=== PATIENT | female | born 1955 | race Caucasian/White ===

== ENCOUNTER 2024-03-09 17:01 | Inpatient (IN) ==
[2024-03-09 17:49] LABS: ABS Eosinophils 0.1 10^3/uL (0.0-0.5); ABS Lymphocytes 1.2 10^3/uL (1.0-4.8); ABS Monocytes 0.4 10^3/uL (0.0-0.9); ABS Neutrophils 9.9 10^3/uL (1.5-7.6); Eosinophil % 0.4 %; Hematocrit 39.7 % (35-45); Hemoglobin 13.2 g/dL (11.5-14.3); Lymphocyte % 10.5 %; Mean Corpuscular Hemoglobin 29.2 pg (27-33); Mean Corpuscular Hgb Conc 33.3 g/dL (31-36); Mean Corpuscular Volume 87.6 fL (80-97); Mean Platelet Volume 8.7 fL (7.5-11.2); Platelet Count 283 10^3/uL (150-450); Red Blood Count 4.53 10^6/uL (3.63-4.92); Red Cell Distribution Width 13.5 % (12-17); White Blood Count 11.6 10^3/uL (3.8-11.8)
[2024-03-09] MEDS: Iodixanol 320 (CONTRAST) 100 ML SDV IV ONE (17:51)
[2024-03-09] MEDS: Prochlorperazine 5 mg/ml 2 ml VIAL (10 mg) IV ONE (18:00)
[2024-03-09 18:03] LABS: Activated Partial Thrombo Time 31.9 seconds (26.0-38.0); INR 0.99 (0.85-1.14)
[2024-03-09 18:30] LABS: Albumin/Globulin Ratio 1.6 (1-3); Calcium 9.5 mg/dL (8.6-10.3); Creatinine, Serum 0.68 mg/dL (0.51-0.95); Direct Bilirubin 0.1 mg/dL (0.03-0.18); Globulin 3.1 g/dL (2-4); HDL Cholesterol 56.4 mg/dL; Indirect Bilirubin 0.6 mg/dL (0.3-1.0); Total Bilirubin 0.7 mg/dL (0.2-1.0); Total Protein 8.1 g/dL (6.4-8.9); eGFR CKD-EPI 93.1 (>60)
[2024-03-09 19:23] LABS: High Sensitivity Troponin 1 Hr 20 pg/mL (<15)
[2024-03-09] MEDS: Acetaminophen IV 1 GM/100ML 1,000 MG/100 ML BAG IV ONE ×2 (19:33→20:47)
[2024-03-09] MEDS: Lactated Ringers 1000 ml BAG IV.FLUID IV ONE (19:34)
[2024-03-09] MEDS ORDERED: LORazepam 2 mg VIAL 1 ml ONE (19:45)
[2024-03-09] MEDS ORDERED: cefTRIAXone 2 GM ADDV.VIAL 2 GM in NS 0.9% 100 ml BAG 100 ML IV ONE (19:56)
[2024-03-09] MEDS ORDERED: Ampicillin IV 1 GM in NS 0.9% 50 ML 50 ML IVPB ONE (19:57)
[2024-03-09] MEDS ORDERED: Etomidate 20 mg/10 ml 2 MG/ML 10 ml VIAL ONE ×2 (19:57→21:17)
[2024-03-09] MEDS ORDERED: Lorazepam PYXIS KEY PRN (20:02)
[2024-03-09] MEDS: LORazepam 2 mg VIAL 1 ml IV PUSH ONE (20:10)
[2024-03-09 20:19] LABS: Urine Appearance Clear; Urine Bacteria 1+ /HPF (Absent); Urine Bilirubin Negative (Negative); Urine Blood Trace (Negative); Urine Color Light-Yellow; Urine Glucose Negative (Negative); Urine Ketones 1+ (Negative); Urine Nitrite Negative (Negative); Urine Protein 1+ (>=30 mg/dL) (Negative); Urine Red Blood Cell 3+(>10/hpf) /HPF (0-Trace); Urine Squamous Epithelial Cell Present /HPF (Absent); Urine Urobilinogen Negative (Negative); Urine White Blood Cell Trace(0-5/hpf) /HPF (0-Trace); Urine pH 8.5 (5.0-8.0)
[2024-03-09 20:22] LABS: Alcohol, S < 13 mg/dL (<13)
[2024-03-09] MEDS ORDERED: Succinylcholine 200 mg VIAL 20 mg/ml 10 ml VIAL (200 mg) ONE (20:23)
[2024-03-09 20:36] LABS: Urine Benzodiazepine Screen None Detected (None Detect); Urine Cannabinoids Screen None Detected (None Detect); Urine Opiates Screen None Detected (None Detect)
[2024-03-09 20:36] LABS: Body Fluid Source Cerebral Spinal
[2024-03-09 20:43] LABS: TSH Ultra Thyroid Stim Horm 0.63 mcIU/mL (0.34-5.60)
[2024-03-09] MEDS: Etomidate 20 mg/10 ml 2 MG/ML 10 ml VIAL IV ONE (20:46)
[2024-03-09 20:49] LABS: CSF Glucose 62 mg/dL (40-70)
[2024-03-09 21:04] LABS: Body Fluid Appearance Clear; Body Fluid Color Colorless; CSF Tube # 3
[2024-03-09 21:12] LABS: CSF Body Fluid WBC 98 /mcL
[2024-03-09 21:14] LABS: High Sensitivity Troponin 3 Hr 41 pg/mL (<15)
[2024-03-09] MEDS ORDERED: Propofol 10 MG/ML 20 ML BTL ONE (21:36)
[2024-03-09] MEDS ORDERED: Propofol 10 mg/ml 100 ML BTL 1,000 MG/100 ML BTL IV SCH ×3 (21:55→22:00)
[2024-03-09] MEDS: Vancomycin 1,250 MG in NS 0.9% 250 ml 250 ML IVPB ONE (21:58)
[2024-03-09 22:43] LABS: Body Fluid Mono 6 %; Body Fluid Total Cells Counted 100
[2024-03-09] MEDS: Acyclovir IV 500 MG in NS 0.9% 100 ml BAG 100 ML IVPB ONE (22:45)
[2024-03-09] MEDS: Midazolam PREMIXBAG 1 MG/ML NS 100 ML IV SCH (22:51)
[2024-03-09] MEDS: Midazolam 2 mg/2 ml VIAL 1 mg/ml 2 ml VIAL (2 mg) IV SLOW PU ONE (23:05)
[2024-03-09] MEDS: Pantoprazole VIAL 40 MG VIAL IV SCH (23:20)
[2024-03-09] MEDS: Chlorhexidine MOUTHWASH 0.12% 15 ML UDC SWISH SPIT SCH (23:20)
[2024-03-09] MEDS ORDERED: Vancomycin per Pharmacy 1 EA NOTE FOLLOW UP SCH (23:45)
[2024-03-10 00:28] LABS: RBC Parasite Smear No Parasites Seen (No Parasite)
[2024-03-10] MEDS: cefTRIAXone 2 gm/50 mL D5W 2 GM/50 ML BAG IV SCH (01:18)
[2024-03-10] MEDS: Ampicillin ADVAN 2 GM in NS 0.9% 100 ml BAG 100 ML IVPB SCH (02:01)
[2024-03-10] MEDS: Enoxaparin 40 MG/0.4 ML SYR SUBCUT SCH (03:46)
[2024-03-10 05:07] LABS: ABS Basophils 0.1 10^3/uL (0.0-0.1); ABS Lymphocytes 2.9 10^3/uL (1.0-4.8); ABS Monocytes 1.3 10^3/uL (0.0-0.9); ABS Neutrophils 8.9 10^3/uL (1.5-7.6); ABS Nucleated RBC 0.03 10^3/ul; Eosinophil % 0.2 %; Hematocrit 37.4 % (35-45); Hemoglobin 12.5 g/dL (11.5-14.3); Mean Corpuscular Hemoglobin 29.8 pg (27-33); Mean Corpuscular Hgb Conc 33.3 g/dL (31-36); Mean Corpuscular Volume 89.4 fL (80-97); Mean Platelet Volume 9.1 fL (7.5-11.2); Nucleated Red Blood Cells % 0.2 %/100WBC (0.0-0.8); Platelet Count 140 10^3/uL (150-450); Red Blood Count 4.18 10^6/uL (3.63-4.92); Red Cell Distribution Width 13.6 % (12-17); White Blood Count 13.2 10^3/uL (3.8-11.8)
[2024-03-10] MEDS: Acetaminophen IV 1 GM/100ML 1,000 MG/100 ML BAG IV PRN (05:52)
[2024-03-10 06:04] LABS: Anion Gap 11 mmol/L (2-16); Blood Urea Nitrogen 7 mg/dL (6-24); CO2 Carbon Dioxide 17 mmol/L (22-32); Calcium 6.8 mg/dL (8.6-10.3); Chloride 109 mmol/L (101-111); Creatinine, Serum 0.45 mg/dL (0.51-0.95); Glucose 87 mg/dL (70-100); Sodium 137 mmol/L (135-145); eGFR CKD-EPI 102.8 (>60)
[2024-03-10] MEDS: Vancomycin 750 MG in NS 0.9% 250 ML IVPB SCH (06:18)
[2024-03-10] MEDS: Acyclovir IV 520 MG in NS 0.9% 100 ml BAG 100 ML IVPB SCH (06:18)
[2024-03-10] MEDS ORDERED: Vancomycin 1,000 MG in NS 0.9% 250 ml 250 ML IVPB ONE (07:00)
[2024-03-10] MEDS: Iohexol 350 (CONTRAST) 500 ML MDV IV ONE (07:10)
[2024-03-10 07:49] LABS: Magnesium 1.5 mg/dL (1.9-2.7); Potassium Redraw 3.7 mmol/L (3.5-5.0)
[2024-03-10] MEDS: Magnesium Sulfate 2 gm BAG 2 GM/50 ML BAG IVPB ONE (08:25)
[2024-03-10] MEDS: KCL 20 MEQ/100 ML IVPREMIX 20 MEQ/100 ML BAG IV ONE (10:32)
[2024-03-10] MEDS: Propofol 10 mg/ml 100 ML BTL 1,000 MG/100 ML BTL IV SCH ×2 (10:44→20:29)
[2024-03-10 14:33] LABS: C Reactive Protein 5.87 mg/L (<8.01)
[2024-03-10 17:17] LABS: High Sensitivity Troponin 1 Hr 10 pg/mL (<15)
[2024-03-10] MEDS: fentaNYL 100 mcg/2 ml 50 MCG/ML VIAL IV SLOW PU PRN (19:40)
[2024-03-10] MEDS: Lidocaine 1% VIAL 10 MG/ML 30 ML VIAL ONE (23:53)
[2024-03-11 05:18] LABS: ABS Basophils 0.1 10^3/uL (0.0-0.1); ABS Neutrophils 9.8 10^3/uL (1.5-7.6); ABS Nucleated RBC 0.01 10^3/ul; Eosinophil % 0.2 %; Hematocrit 33.3 % (35-45); Hemoglobin 11.4 g/dL (11.5-14.3); Lymphocyte % 15.5 %; Mean Corpuscular Hemoglobin 29.6 pg (27-33); Mean Corpuscular Hgb Conc 34.3 g/dL (31-36); Mean Corpuscular Volume 86.3 fL (80-97); Mean Platelet Volume 8.6 fL (7.5-11.2); Nucleated Red Blood Cells % 0.1 %/100WBC (0.0-0.8); Platelet Count 204 10^3/uL (150-450); Red Blood Count 3.86 10^6/uL (3.63-4.92); Red Cell Distribution Width 13.6 % (12-17)
[2024-03-11 05:55] LABS: Calcium 7.5 mg/dL (8.6-10.3); Creatinine, Serum 0.64 mg/dL (0.51-0.95); Magnesium 1.9 mg/dL (1.9-2.7); Potassium 3.1 mmol/L (3.5-5.0); Vancomycin Trough 11.3 mcg/mL; eGFR CKD-EPI 94.4 (>60)
[2024-03-11] MEDS: Vancomycin Trough Check NOTE FOLLOW UP ONE (06:11)
[2024-03-11] MEDS: KCL 20 MEQ/100 ML IVPREMIX 20 MEQ/100 ML BAG IV ONE (08:06)
[2024-03-11] MEDS: Dexamethasone IV 4 MG/ML VIAL 1 ml VIAL IV SLOW PU SCH (11:09)
[2024-03-11] MEDS: Lidocaine 2% PF 5 ML VIAL INJ ONE (11:35)
[2024-03-11] MEDS: Midazolam 5 mg/5 ml VIAL 1 mg/ml 5 ml VIAL (5 mg) IV SLOW PU ONE ×2 (11:45→14:22)
[2024-03-11] MEDS: DOXYcycline 100 MG in NS 0.9% 250 ml 250 ML IVPB SCH (11:52)
[2024-03-11] MEDS: Lidocaine 2% PF 5 ML VIAL ONE (12:10)
[2024-03-11 12:14] LABS: Body Fluid Source Cerebral Spinal
[2024-03-11 12:29] LABS: Body Fluid Appearance Clear; Body Fluid Color Colorless; CSF Tube # 2
[2024-03-11 12:30] LABS: CSF Body Fluid WBC 16 /mcL
[2024-03-11] MEDS: Midazolam 5 mg/5 ml VIAL 1 mg/ml 5 ml VIAL (5 mg) ONE ×2 (13:06→17:06)
[2024-03-11 13:41] LABS: Body Fluid Mono 18 %; Body Fluid Total Cells Counted 200
[2024-03-11] MEDS: Gadoteridol (CONTRAST) 279.3 MG/ML 10 ML IV ONE (16:15)
[2024-03-11] MEDS ORDERED: Sulfur Hexaflouride MICROSPHR 25 MG VIAL IV PRN (16:56)
[2024-03-11] MEDS: Acyclovir IV 520 MG in NS 0.9% 100 ml BAG 100 ML IVPB SCH (17:28)
[2024-03-11] MEDS: Lactated Ringers 1000 ml BAG 1,000 ML IV ONE (20:02)
[2024-03-11 20:49] LABS: HSV 1 PCR, CSF Negative (Negative); HSV 2 PCR, CSF Negative (Negative)
[2024-03-12] MEDS: Midazolam 5 mg/5 ml VIAL 1 mg/ml 5 ml VIAL (5 mg) IV SLOW PU ONE (02:28)
[2024-03-12] MEDS: Midazolam 5 mg/5 ml VIAL 1 mg/ml 5 ml VIAL (5 mg) ONE (04:55)
[2024-03-12 05:20] LABS: ABS Lymphocytes 1.1 10^3/uL (1.0-4.8); ABS Monocytes 0.5 10^3/uL (0.0-0.9); ABS Neutrophils 7.3 10^3/uL (1.5-7.6); ABS Nucleated RBC 0.01 10^3/ul; Hematocrit 31.9 % (35-45); Lymphocyte % 12.4 %; Mean Corpuscular Hemoglobin 29.9 pg (27-33); Mean Corpuscular Hgb Conc 34.5 g/dL (31-36); Mean Corpuscular Volume 86.5 fL (80-97); Mean Platelet Volume 8.7 fL (7.5-11.2); Nucleated Red Blood Cells % 0.1 %/100WBC (0.0-0.8); Platelet Count 190 10^3/uL (150-450); Red Blood Count 3.69 10^6/uL (3.63-4.92); Red Cell Distribution Width 13.6 % (12-17); White Blood Count 8.9 10^3/uL (3.8-11.8)
[2024-03-12 05:59] LABS: Calcium 7.9 mg/dL (8.6-10.3); Creatinine, Serum 0.5 mg/dL (0.51-0.95); Magnesium 1.9 mg/dL (1.9-2.7); eGFR CKD-EPI 100.2 (>60)
[2024-03-12] MEDS: Dexamethasone IV 4 MG/ML VIAL 1 ml VIAL IV SLOW PU SCH (07:33)
[2024-03-12] MEDS: Magnesium Sulfate 2 gm BAG 2 GM/50 ML BAG IVPB ONE (08:55)
[2024-03-12] MEDS ORDERED: Morphine 4 MG/ML VIAL (1 ml) IV PRN (09:19)
[2024-03-12] MEDS ORDERED: Lorazepam PYXIS KEY PRN (09:22)
[2024-03-12] MEDS ORDERED: Morphine 2 MG/ML SYRINGE IV PRN (09:23)
[2024-03-12] MEDS: KCL 20 MEQ/100 ML IVPREMIX 20 MEQ/100 ML BAG IV SCH (09:29)
[2024-03-12] MEDS: LORazepam 2 mg VIAL 1 ml IV PUSH PRN (09:29)
[2024-03-12] MEDS: MESALAMINE 1.2 GM PO SCH (16:39)
[2024-03-13 01:54] LABS: Anaplasma phagocytophilum Negative (Negative); B. miyamotoi PCR, B Negative (Negative); Babesia divergens/MO-1 Negative (Negative); Babesia ducani Negative (Negative); Ehrlichia chaffeensis Negative (Negative); Ehrlichia ewingii/canis Negative (Negative); Ehrlichia muris eauclairensis Negative (Negative)
[2024-03-13 05:04] LABS: ABS Lymphocytes 1.7 10^3/uL (1.0-4.8); ABS Monocytes 0.7 10^3/uL (0.0-0.9); ABS Neutrophils 10.7 10^3/uL (1.5-7.6); ABS Nucleated RBC 0.01 10^3/ul; Eosinophil % 0.1 %; Hematocrit 30.8 % (35-45); Hemoglobin 10.4 g/dL (11.5-14.3); Lymphocyte % 12.6 %; Mean Corpuscular Hemoglobin 29.3 pg (27-33); Mean Corpuscular Hgb Conc 33.7 g/dL (31-36); Mean Corpuscular Volume 87.1 fL (80-97); Mean Platelet Volume 8.7 fL (7.5-11.2); Nucleated Red Blood Cells % 0.1 %/100WBC (0.0-0.8); Platelet Count 238 10^3/uL (150-450); Red Blood Count 3.54 10^6/uL (3.63-4.92); Red Cell Distribution Width 13.7 % (12-17); White Blood Count 13.2 10^3/uL (3.8-11.8)
[2024-03-13 05:44] LABS: Calcium 8.2 mg/dL (8.6-10.3); Creatinine, Serum 0.55 mg/dL (0.51-0.95); Magnesium 2.1 mg/dL (1.9-2.7); Potassium 3.8 mmol/L (3.5-5.0); eGFR CKD-EPI 97.9 (>60)
[2024-03-13] MEDS: Potassium Chlor 20 meq TAB.ER PO ONE (08:51)
[2024-03-13] MEDS: Iohexol 350 (CONTRAST) 500 ML MDV IV ONE (11:34)
[2024-03-14 05:49] LABS: ABS Basophils 0.1 10^3/uL (0.0-0.1); ABS Lymphocytes 2.3 10^3/uL (1.0-4.8); ABS Monocytes 0.7 10^3/uL (0.0-0.9); ABS Neutrophils 8.4 10^3/uL (1.5-7.6); Eosinophil % 0.2 %; Hemoglobin 11.1 g/dL (11.5-14.3); Lymphocyte % 19.9 %; Mean Corpuscular Hemoglobin 29.2 pg (27-33); Mean Corpuscular Hgb Conc 33.5 g/dL (31-36); Mean Corpuscular Volume 87.1 fL (80-97); Mean Platelet Volume 8.9 fL (7.5-11.2); Platelet Count 265 10^3/uL (150-450); Red Blood Count 3.79 10^6/uL (3.63-4.92); Red Cell Distribution Width 13.9 % (12-17); White Blood Count 11.6 10^3/uL (3.8-11.8)
[2024-03-14 06:14] LABS: Calcium 8.7 mg/dL (8.6-10.3); Creatinine, Serum 0.67 mg/dL (0.51-0.95); Magnesium 1.8 mg/dL (1.9-2.7); Potassium 3.8 mmol/L (3.5-5.0); eGFR CKD-EPI 93.4 (>60)
[2024-03-14] MEDS: Magnesium Sulfate 2 gm BAG 2 GM/50 ML BAG IVPB ONE (09:08)
[2024-03-14] MEDS: Lactated Ringers 1000 ml BAG 1,000 ML IV SCH (10:19)
[2024-03-14] MEDS ORDERED: fentaNYL 100 mcg/2 ml 50 MCG/ML VIAL IV SLOW PU PRN (11:22)
[2024-03-14] MEDS: Potassium Chlor 20 meq TAB.ER PO ONE (17:20)
[2024-03-15 07:15] LABS: ABS Lymphocytes 2.9 10^3/uL (1.0-4.8); ABS Monocytes 1.2 10^3/uL (0.0-0.9); ABS Neutrophils 9.2 10^3/uL (1.5-7.6); ABS Nucleated RBC 0.01 10^3/ul; Eosinophil % 0.3 %; Hematocrit 39.6 % (35-45); Hemoglobin 13.5 g/dL (11.5-14.3); Lymphocyte % 21.7 %; Mean Corpuscular Hemoglobin 29.7 pg (27-33); Mean Corpuscular Hgb Conc 34.2 g/dL (31-36); Mean Corpuscular Volume 86.8 fL (80-97); Platelet Count 370 10^3/uL (150-450); Red Blood Count 4.56 10^6/uL (3.63-4.92); Red Cell Distribution Width 13.6 % (12-17); White Blood Count 13.3 10^3/uL (3.8-11.8)
[2024-03-15 08:30] LABS: Calcium 9.6 mg/dL (8.6-10.3); Creatinine, Serum 0.58 mg/dL (0.51-0.95); Magnesium 2.1 mg/dL (1.9-2.7); Potassium 4.3 mmol/L (3.5-5.0); eGFR CKD-EPI 96.7 (>60)
[2024-03-15 13:46] VITALS: BP 157/97
== END 2024-03-15 15:04 | disposition home or self-care (01) | DRG 75 ==
LOC: ED 17:01 → SUATTDRO 21:28 → EDHOLD 21:28 → ICU 21:51 → MEDTELE 22:39
PROVIDERS: ADMIT Student in an Organized Health Care Education/Training Program; ATTEND Internal Medicine